=== PATIENT | female | born 1950 | race Hispanic/Latino ===

== ENCOUNTER 2017-05-29 09:43 | Outpatient (CLI) | payer MEDICARE, OTHER ==
[2017-05-29 10:12] LABS: Anion Gap 18 mmol/L; BUN/Creatinine Ratio 16.66; Blood Urea Nitrogen 15 mg/dL (7-17); Calcium 9.4 mg/dL (8.4-10.2); Carbon Dioxide 26 mmol/L (22-30); Chloride 100.6 mmol/L (98-107); Glucose 142 mg/dL (65-100); Potassium 4.7 mmol/L (3.6-5.0); Sodium 140 mmol/L (137-145)
[2017-05-29] MEDS ORDERED: NACL ONE (10:43)
--- NOTE | 2017-05-29 13:28 | Cat Scan Report ---
CT chest with contrast: Abnormal left lower lobe. Following injection of IV contrast transverse images are obtained through the chest with coronal and sagittal 2-D reformatted images. There is mild shotty mediastinal adenopathy. No hilar adenopathy. The central airway is patent. No filling defects identified in the pulmonary arteries nor cardiac chambers. The thoracic aorta is normal in size and contour. There is a 5 mm noncalcified nodule in the right lower lobe on image 150 of series 2. There is a thick linear opacity contiguous with and paralleling the posterior margin of the left hemidiaphragm. There is a bilobed 2 cm hypodensity in the anterior margin near the dome of the liver. Several small gallstones are present. The findings are otherwise unremarkable. This patient had an abdominal CT in 2010. We cannot retrieve the images. The hypodensity in the liver was described but neither the gallstones nor the pulmonary findings were mentioned. Impressions: 1. The right lower lobe nodule and left lower lobe opacity have a low suspicion for malignancy. 2. Cholelithiasis. Recommendation: 1. Repeat CT of chest in approximately 4-6 months to reevaluate the pulmonary findings. 2. Clinical evaluation for gallstones.
== END 2017-05-29 09:44 | disposition home or self-care (01) ==
LOC: CT 09:43
PROVIDERS: ATTEND Internal Medicine
DX: K80.20 Calculus of gallbladder without cholecystitis without obstruction (principal); R91.8 Other nonspecific abnormal finding of lung field; R59.9 Enlarged lymph nodes, unspecified
CPT/HCPCS: 36415; 71260; 80048; Q9967

== ENCOUNTER 2018-01-14 11:10 | Outpatient (CLI) | payer MEDICARE ==
[2018-01-14 11:40] LABS: Hematocrit 42.9 % (30.3-42.9); Hemoglobin 14.4 gm/dl (10.1-14.3); Mean Corpuscular HGB Conc 34 % (30-34); Mean Corpuscular Hemoglobin 29 pg (28-32); Mean Corpuscular Volume 86 fl (79-97); Platelet Count 346 K/mm3 (140-440); Red Blood Count 5.01 M/mm3 (3.65-5.03); Red Cell Distribution Width 13.5 % (13.2-15.2)
[2018-01-14 11:57] LABS: Alanine Aminotransferase 18 units/L (7-56); Albumin 4.2 g/dL (3.9-5); BUN/Creatinine Ratio 23; Blood Urea Nitrogen 16 mg/dL (7-17); Calcium 9.4 mg/dL (8.4-10.2); Hemolysis Index 11
--- NOTE | 2018-01-14 13:49 | Cat Scan Report ---
CT scan of chest with IV contrast: History: Solitary pulmonary nodule followup. Findings: No endobronchial or mediastinal mass. No mediastinal hilar or axillary adenopathy. No pleural or pericardial effusion. There is a single nodule identified in the right lower lobe region appears smaller and less dense compared to previous study suggestive of benign lesion.. There is no infiltrate or nodule left lung. Impression: Nodule in the right lower lobe appears minimally smaller and less dense compared to previous study and probably benign. Again 6 month followup may be recommended.
== END 2018-01-14 11:11 | disposition home or self-care (01) ==
LOC: CT 11:10
PROVIDERS: ATTEND Internal Medicine
DX: R91.1 Solitary pulmonary nodule (principal)
CPT/HCPCS: 36415; 71260; 80053; 85027; Q9967